=== PATIENT | female | born 1975 | race Caucasian/White ===

== ENCOUNTER → 2017-09-15 | Outpatient (CLI) | payer OTHER ==
[2017-09-15 08:39] LABS: BASO % 0 % (0-3); EOS # 0.1 x10^3/uL (0.0-0.7); EOS % 1 % (0-3); HEMATOCRIT 39.7 % (36.0-47.0); HEMOGLOBIN 13.4 g/dL (12.0-15.5); LYMPH # 1.9 x10^3/uL (1.0-4.8); LYMPH % 30 % (24-48); MEAN CORPUSCULAR HEMOGLOBIN 31 pg (25-35); MEAN CORPUSCULAR HGB CONC 34 g/dL (31-37); MEAN CORPUSCULAR VOLUME 91 fL (79-100); MONO # 0.5 x10^3/uL (0.0-1.1); MONO % 8 % (0-9); NEUT # 3.8 x10^3uL (1.8-7.7); NEUT % 61 % (31-73); PLATELET COUNT 192 x10^3/uL (140-400); RED BLOOD COUNT 4.36 x10^6/uL (3.50-5.40); WHITE BLOOD COUNT 6.2 x10^3/uL (4.0-11.0)
[2017-09-15 08:47] LABS: BACTERIA,URINE FEW /HPF (0-FEW); BILIRUBIN,URINE NEG (NEG); CLARITY,URINE HAZY; COLOR,URINE YELLOW; GLUCOSE,URINE NEG (NEG); NITRITE,URINE NEG (NEG); RBC,URINE 0 /HPF (0-2); SQUAMOUS EPITHELIAL CELL,UR MANY /LPF; UROBILINOGEN,URINE 1 mg/dL (0.2 mg/dL)
[2017-09-15 08:51] LABS: ALBUMIN 3.6 g/dL (3.4-5.0); ALBUMIN/GLOBULIN RATIO 1.2 (1.0-1.7); CREATININE 0.7 mg/dL (0.6-1.0); GFR 92.2; POTASSIUM 4.5 mmol/L (3.5-5.1); TOTAL BILIRUBIN 1.2 mg/dL (0.2-1.0); TOTAL PROTEIN 6.7 g/dL (6.4-8.2)
[2017-09-15 12:11] LABS: FREE T4 0.73 ng/dL (0.76-1.46); THYROID STIM HORMONE (TSH) 3.749 uIU/mL (0.358-3.740)
[2017-09-15 21:08] LABS: HEMOGLOBIN A1C 4.8 % (4.8-5.6)
== END | disposition home or self-care (01) ==
LOC: LAB 07:52
PROVIDERS: ATTEND Neuromusculoskeletal Medicine & OMM
DX: Z00.01 Encounter for general adult medical examination with abnormal findings (principal); E66.9 Obesity, unspecified; E74.39 Other disorders of intestinal carbohydrate absorption; R79.89 Other specified abnormal findings of blood chemistry
CPT/HCPCS: 36415; 80053; 80061; 81001; 82306; 83036; 84436; 84439; 84443; 85025; 87086

== ENCOUNTER → 2017-10-06 | Outpatient (CLI) | payer OTHER ==
--- NOTE | 2017-10-06 17:20 | RAD ---
Thyroid ultrasound HISTORY: Thyroid nodules. Right thyroid: * 5.1 cm x 1.2 cm x 1.2 cm * Homogeneous echotexture * Upper nodule measures 4 mm, contains a small internal focus of echogenicity or calcification, mostly appears cystic Isthmus: * 2 mm Left thyroid: * 4.4 cm x 1.2 cm x 0.9 cm * Homogeneous echotexture. * 2 mm lower pole nodule, mixed appearance. * One or 2 mm mid pole nodule, too small to characterize. IMPRESSION: Several small thyroid nodules, measuring up to 4 mm size. Electronically signed by: Ryan Haskins MD (10/06/2017 5:16 PM) [id number]
== END | disposition home or self-care (01) ==
LOC: US 10:39
PROVIDERS: ATTEND Neuromusculoskeletal Medicine & OMM
DX: E04.2 Nontoxic multinodular goiter (principal)
CPT/HCPCS: 76536